=== PATIENT | female | born 1985 | race Caucasian/White ===

== ENCOUNTER 2017-05-01 02:57 | Emergency (ER) | payer OTHER ==
[~2017-05-01] VITALS: Ht 165.1 cm; Wt 82.7 kg
[~2017-05-01 02:57] MED LIST: BUPR1FIL SL; HYDR25TA4 PO
[2017-05-01 03:01] VITALS: BP 150/93; PULSE 106; RESP 16; O2SAT 100
--- NOTE | 2017-05-01 03:15 | ED.REPORT ---
HPI-General Illness Date of Service May 01, 2017 ED Provider: Norm Escobedo MD 32 y/o female with a hx of HTN presents to the ED complaining of a burning sensation in the neck onset 2 hours ago that radiates to her left shoulder. The pt states she woke up this morning to go to work when she began experiencing the sx. Associated sx include shaking, weakness in both arms, worse in the left arm. She states "my arms feel like jello". She thought she was having a panic attack so she tried to drink water and relax but her sx did not improve, at which point she came to the ED. She denies lower extremity edema or cords. Nursing Notes Stated Complaint: SHAKEY,NECK/BACK PAIN Chief Complaint: Back Pain or Injury Nursing Notes Reviewed: Yes Allergies: Coded Allergies: No Known Allergies (Verified , 11/16/08) Scheduled Buprenorphine HCl/Naloxone HCl (Suboxone 2 mg-0.5 mg Sl Film) 1 Each Film 1 EACH SL DAILY Hydrochlorothiazide (Hydrochlorothiazide) 25 Mg Tablet 25 MG PO DAILY Methocarbamol (Robaxin-750) 750 Mg Tablet 750 MG PO QID Scheduled PRN Naproxen (Naprosyn) 500 Mg Tablet 500 MG PO BID PRN PRN For Pain General Time Seen by MD: 03:15 Chief Complaint Other (burning sensation in the neck) Hx Obtained From: Patient Arrived By: Walk-in Sudden in Onset?: Yes Onset Occurred: 1 - 4 hours ago Symptom Duration: Since onset Location: : Neck Quality: Burning Radiation: : Shoulder (left) Severity: Current: Mild Severity: Maximum: Moderate Recent Healthcare: No recent doctor visit Similar Sx Previous: No Past Medical History Past Medical History Reports: Hypertension Past Surgical History tubal ligation Smoking History Never Smoker Social History Alcohol Use: Denies alcohol use Drug Use: Denies drug use Ambulatory Status Independent Review of Systems Full Review of Systems Musculoskeletal: Reports: Extremity pain (left shoulder burning sensation), Neck pain (burning sensation) Neurologic: Reports: Weakness (both arms, worse on left) Complete sys rev & neg: except as marked. Physical Exam Vital Signs Vital Signs Date Time Temp Pulse Resp B/P Pulse Ox O2 Delivery O2 Flow Rate FiO2 05/01/17 05:31 36.7 102 16 142/84 100 Room Air 05/01/17 03:01 36.6 106 16 150/93 100 Room Air Initial VS: Reviewed Head / Eyes: Atraumatic, Normocephalic Neck: Supple, Non-tender, Full range of motion Respiratory: Breath sounds normal, Clear to auscultation, No respiratory distress Cardiovascular: Regular rate & rhythm, Heart sounds normal, Intact distal pulses Abdomen / GI: Soft, Non-tender Extremities: Vascular intact, Neuro intact, No swelling, No tenderness Skin: Warm, Dry, No cyanosis Neurologic: Alert, Oriented, Nonfocal General/Constitutional: Awake, Alert, Cooperative Behavior: Positive: Anxious (mildly) Interpretation & Diagnostics Lab Results Interpretation Result Diagram: 05/01/17 0430 05/01/17 0430 Test 05/01/17 04:30 White Blood Count 5.0th/mm3 (3.8-10.1) Red Blood Count 4.87mil/mm3 (3.90-5.20) Hemoglobin 9.0g/dL (12.0-15.6) Hematocrit 31.0% (35.0-46.0) Mean Corpuscular Volume 63.7fL (81-100) Mean Corpuscular Hemoglobin 18.5pg (27.0-35.0) Mean Corpuscular Hemoglobin Concent 29.0% (32.0-37.0) Red Cell Distribution Width 17.3% (12.3-15.4) Platelet Count 311bil/L (150-400) Neutrophils (%) (Auto) 69.3% (40-74) Lymphocytes (%) (Auto) 19.3% (14-46) Monocytes (%) (Auto) 9.8% (4-12) Eosinophils (%) (Auto) 1.2% (0-5) Basophils (%) (Auto) 0.4% (0-3) Sodium Level 140mEq/L (134-144) Potassium Level 3.8mEq/L (3.5-5.2) Chloride Level 104mEq/L (97-108) Carbon Dioxide Level 22mmol/L (18-29) Blood Urea Nitrogen 11mg/dL (6-20) Creatinine 0.61mg/dL (0.57-1.00) Estimat Glomerular Filtration Rate 162mL/min (>59) Glucose Level 124mg/dL (60-99) Calcium Level 9.0mg/dL (8.5-10.1) Magnesium Level 2.0mg/dL (1.6-2.6) Total Bilirubin 0.2mg/dL (0.0-1.2) Aspartate Amino Transf (AST/SGOT) 17U/L (0-50) Alanine Aminotransferase (ALT/SGPT) 13U/L (0-32) Alkaline Phosphatase 66U/L (25-150) Total Protein 7.2g/dL (6.4-8.4) Albumin 3.8g/dL (3.4-5.0) Hold [place] Top Tube Received (Received) ECG Interpretation ECG Interpretation: Normal sinus rhythm. Rate 87. Time: 03:24 Interpreted by: ED physician X-Ray Chest Interpretation Chest Xray Interpretation: Result: Normal View: Portable, 1 view Interpretation / Wet Read by: Wet read ED physician X-Ray C-Spine Interpretation Result: Reversal of normal lordosis. No other acute findings. Study: Portable AP view Interpretation / Wet Read by: Danielle durand ED physician Re-Eval/Medical Decision Med Decision/Clinical Course 32-year-old female awoke with burning dysesthesias in her left arm, fairly clearly related to sleeping position and nerve compression at the cervical level. She then became anxious about this and had a plethora of other symptoms that appear to be related to her anxiety and panic response to her primary symptoms. All of this is improving here. She was provided with a soft collar for sleep, a single dose of Decadron here, Naprosyn and methocarbamol for ongoing use, and is discharged now in stable condition. No indication of cardiac source. No peripheral edema or cords or reason to suspect pulmonary embolus. PERCscore is zero and no indication for d-dimer or additional testing. Time of Eval: 04:30 Re-Evaluation/Progress Note: Rechecked pt. Discussed imaging results, diagnosis and plan to discharge depending on the lab results. Pt understands and agrees with the plan. F/U instructions and RTER warning given. All questions addressed. Counseled Regarding: Diagnosis, Lab results, Need for follow-up, When/why to return to ED Discharge & Departure Primary Impression: Cervical radiculopathy Additional Impressions: Anxiety Panic disorder Disposition: Home Discharge Condition All VS Reviewed: Yes Condition: Stable Patient Instructions: Cervical Radiculopathy (ED) Additional Instructions: Naprosyn twice daily if needed. Methocarbamol four times daily if needed. Follow-up with your doctor in the office. Referrals: Gene Love MD (PCP) Scribe Attestation Portions of this note were transcribed by Francisco Rush. I, , personally performed the history, physical exam and medical decision- making;I reviewed and confirmed the accuracy of the information in the transcribed note. Signed by Sarita Guajardo. 05/01/17 04:36 copies to: Gene Love MD, Christopher W MD May 01, 2017 03:15 Francisco Rush May 01, 2017 03:22
[2017-05-01] MEDS ORDERED: Dexamethasone 20 mg/2 mL Oral Solution PO ONE (04:25)
[2017-05-01] MEDS ORDERED: NAPR500T PO (04:27)
[2017-05-01] MEDS ORDERED: METH-313 PO (04:27)
[2017-05-01 04:42] LABS: BASOPHILS % (AUTO) 0.4 % (0-3); EOSINOPHILS % (AUTO) 1.2 % (0-5); MONOCYTES % (AUTO) 9.8 % (4-12); Mean Corpuscular Hemoglobin 18.5 pg (27.0-35.0); Mean Corpuscular Volume 63.7 fL (81-100); NEUTROPHILS % (AUTO) 69.3 % (40-74); Platelet Count 311 bil/L (150-400)
[2017-05-01 05:31] VITALS: BP 142/84; PULSE 102; RESP 16; O2SAT 100
--- NOTE | 2017-05-01 09:48 | DRSVH ---
PROCEDURE: X-RAY CERVICAL SPINE, 2 OR 3 VIEWS INDICATIONS: radicular pain left arm TECHNIQUE: 4 view(s) of the cervical spine were acquired. COMPARISON: None. FINDINGS: Bones: No fractures or dislocations to the T1 level. The lateral masses of C1 appear intact on the odontoid view. No suspicious bony lesions. Loss of lordosis which could be related to muscle spasm, rigidity or simply positional. Mild C4-C5 and C5-C6 early disc degeneration. Soft tissues: No prevertebral soft tissue swelling. IMPRESSION: Loss of lordosis and minimal early disc degeneration. Dictated by: Ahsan Castro [facility] Interpreted: Saad Sebastian MD on 05/01/2017 at 9:46 Transcribed by: MARYCRUZ on 05/01/2017 at 9:47 Approved by: Saad Sebastian M.D. on 05/01/2017 at 16:26
--- NOTE | 2017-05-01 16:27 | DRSVH ---
PROCEDURE: X-RAY CHEST ONE VIEW, PORTABLE ([id number]) INDICATIONS: CHEST PAIN TECHNIQUE: One view of the chest was acquired. COMPARISON: [facility], CR, XR CHEST 1VW (PORTABLE), 03/31/2016, 1:49. FINDINGS: Surgical changes and devices: None. Lungs and pleura: No pleural effusions or pneumothorax. Lungs are clear. Mediastinum: Mediastinal contours appear normal. Heart size is normal. Bones and chest wall: No suspicious bony lesions. Overlying soft tissues appear unremarkable. IMPRESSION: No acute cardiopulmonary disease. Dictated by: Ahsan Castro [facility] Interpreted: Saad Sebastian MD on 05/01/2017 at 9:46 Approved by: Saad Sebastian M.D. on 05/01/2017 at 16:25
== END 2017-05-01 05:34 | disposition home or self-care (01) ==
LOC: SED 03:08
DX: M54.12 Radiculopathy, cervical region (principal); F41.0 Panic disorder [episodic paroxysmal anxiety]; I10 Essential (primary) hypertension; Z79.899 Other long term (current) drug therapy